=== PATIENT | female | born 1955 | race Caucasian/White ===

== ENCOUNTER → 2018-11-06 | Outpatient (CLI) | payer BC ==
[~2018-11-06] MED LIST: CALCIUM; ESTR42.5 VG; MULT-1335 PO
--- NOTE | 2018-11-06 13:30 | RADIOLOGY IMAGING REPORT ---
FACILITY: [facility] [place] PATIENT NAME: Yinka Dos Santos : 1955 MR: [id number] V: [id number] EXAM DATE: ORDERING PHYSICIAN: LORI PHELAN TECHNOLOGIST: Location: [facility] [place] Patient: Yinka Dos Santos : 1955 Visit/Account:[id number] Date of Sevice: 11/06/2018 CT WRIST/HAND W/O RT Indication: ORIF right wrist Comparison: None available Technique: Axial CT images were obtained through the right wrist. Reformatted coronal and sagittal im ages were reviewed. One of the following dose optimization techniques was utilized in the performance of this exam: autom ated exposure control; adjustment of the mA and/or kV according to the patient's size; or use of an i terative reconstruction technique. Specific details can be referenced in the facility's radiology CT exam operational policy. Findings: There is a plate and screw constructs along the volar margin of the minimally impacted complex intra- articular fracture of the distal radius. Multiple interlocking fixation screws seen with no evidence of hardware complication on these images. There is mild cortical offset at the articular surface of t he distal radius by 1.5 mm noted on image 28 of the coronal series. There is also mild dorsal displac ement of the distal radius in relation to the volar aspect of the distal radius. Cystic changes seen within the radial aspect of the lunate bone likely degenerative in nature. There is suggestion of slight widening of the scapholunate interval which could relate to sequela of old in jury to the scapholunate ligament. Small bone fragments along the ulnar margin of the minimally impacted fracture distal radius seen bes t on image 36 of the coronal reformatted images as well. There is overall evidence of approximately 3 .2 mm of cortical offset at the articular surface with the ulna at the distal radioulnar joint. The visualized flexor and extensor tendons of the wrist show overall no significant tenosynovitis on these images. 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 IMPRESSION: 1. ORIF of the impacted intra-articular fracture distal radius with mild offset at the articular surf aces as described above and overall no obvious hardware complication. Report Dictated By: Chapincito Beach MD at 11/06/2018 1:21 PM Report E-Signed By: Chapincito Beach MD at 11/06/2018 1:25 PM WSN:[id number]
== END ==
LOC: CT 11:18
PROVIDERS: ATTEND Orthopaedic Surgery Hand Surgery
DX: S62.91XA Unspecified fracture of right hand, initial encounter for closed fracture (principal)

== ENCOUNTER 2018-11-10 04:23 | Day surgery (SDC) | payer BC ==
[~2018-11-10] VITALS: Ht 165.1 cm; Wt 70.3 kg
[2018-11-10] MEDS ORDERED: LIDOCAINE/SOD BICARB 8.4% SYR ID ONE (06:50)
[2018-11-10] MEDS ORDERED: NORMOSOL R SOLN(*) 1000 ML BAG 1,000 ML IV PRN (06:50)
[2018-11-10] MEDS ORDERED: CELECOXIB 200 MG CAP PO ONE (06:50)
[2018-11-10] MEDS ORDERED: FAMOTIDINE 20 MG TAB PO ONE (06:50)
[2018-11-10] MEDS ORDERED: MIDAZOLAM 2 MG/2 ML VIAL IVP PRN (06:50)
[2018-11-10] MEDS ORDERED: ceFAZolin(*) 1 GM VIAL 1 GM in NS(*) 0.9% 100 ML MINI-BAG 100 ML IVPB ONE (06:50)
[2018-11-10] MEDS ORDERED: BACITRACIN OINT 15 GM TUBE TP ONE (07:08)
[2018-11-10] MEDS ORDERED: ROPIVACAINE 0.2% 20 ML VIAL ONE (07:08)
[2018-11-10] MEDS ORDERED: METOCLOPRAMIDE 10 MG/2 ML SDV ONE (07:10)
[2018-11-10] MEDS ORDERED: ONDANSETRON 4 MG/2 ML VIAL ONE (07:10)
[2018-11-10] MEDS ORDERED: PROPOFOL EMUL(*) 10MG/ML 20 ML 20 ML ONE (07:10)
[2018-11-10] MEDS ORDERED: LIDOCAINE MPF 1% 5 ML VIAL ONE (07:10)
[2018-11-10] MEDS ORDERED: DEXAMETHASONE SOD 4 MG/ML VIAL ONE (07:10)
[2018-11-10] MEDS ORDERED: fentaNYL CITR 250 MCG/5 ML AMP ONE (07:11)
[2018-11-10 07:16] VITALS: BP 112/68
[2018-11-10] MEDS ORDERED: fentaNYL CITR 100 MCG/2 ML AMP ONE ×2 (07:39→08:54)
[2018-11-10] MEDS ORDERED: ROPIVACAINE 0.5% 20 ML VIAL ONE (08:20)
[2018-11-10] MEDS ORDERED: ePHEDrine 25 MG/5 ML DISP.SYR IVP ONE (08:29)
[2018-11-10] MEDS ORDERED: OXYC-823 PO (10:20)
[2018-11-10] MEDS ORDERED: CEPH500T7 PO (10:21)
[2018-11-10] MEDS ORDERED: OXYC5TAB38 PO (10:37)
[2018-11-10 11:22] VITALS: BP 110/67
--- NOTE | 2018-11-10 11:23 | NUR ---
PT. PLACED ON RA AND INSTRUCTED TO BREATH NORMAL WILL MONITOR OXYGEN SATS ON RA.
[2018-11-10 11:45] VITALS: BP 107/53
[2018-11-10 11:47] VITALS: BP 101/59
--- NOTE | 2018-11-11 01:00 | OPERATIVE REPORT 1 ---
EVENT DATE: November 10, 2018 SURGEON: Dmitry Cardoza MD ANESTHESIOLOGIST: Dale Vazquez MD ANESTHESIA: Block plus general anesthetic. DROP HAMMER SETTER UP: KALYN Choi PREOPERATIVE DIAGNOSIS Malreduced distal radius fracture, right side, status post open reduction and internal fixation. POSTOPERATIVE DIAGNOSIS Malreduced distal radius fracture, right side, status post open reduction and internal fixation. PROCEDURE PERFORMED 1. Right distal radius deep hardware removal (15002). 2. Revision, open reduction and internal fixation of comminuted intra-articular multipart distal radius fracture (69283). This is a revision procedure, so we are going to use a modifier 22 (revision case). 3. Intraoperative fluoroscopy for hardware placement, three views (89911). ESTIMATED BLOOD LOSS Minimal. INTRAVENOUS FLUIDS 1500 of crystalloid. No colloid. TOURNIQUET TIME 97 up, 5 down, 3 up. SPECIMENS None. COMPLICATIONS None. IMPLANTS USED Skeletal [employer] Melissa four-hole standard right-side plate with hook plate and screw and multiple locking and nonlocking smooth and threaded pegs. INDICATIONS FOR PROCEDURE Ms. Dos Santos is a 63-year-old woman who was visiting [place] and fell, resulting in an intra-articular distal radius fracture, right side. She was given a temporary reduction at the local emergency room and then sent to a local orthopedic hospital, where an open reduction and internal fixation using a Synthes volar plate was undertaken. In reviewing the operative note, it does appear that they did everything that one would normally do with these types of fractures, including going far radial and releasing structures as necessary. However, unfortunately, it does not appear that the articular surface was actually reduced. The volar surface looked fairly good, but the dorsal surface was still fairly broadly displaced, and a CT scan confirmed that the scaphoid fossa as well as portions of the lunate fossa and the dorsoulnar fragment were substantially displaced, with gaps in the joint of greater than 5 mm and greater than 30 degrees of rotation. We talked with Ms. Dos Santos about the risks of going back in on a surgery of this kind versus letting it heal where it is and potentially accepting the articular malunion, but ultimately she decided she wanted to have this repaired. DESCRIPTION OF PROCEDURE The patient was brought in to the operating room and placed on the OR table in the supine position. After obtaining adequate general anesthesia and having given a block, the right upper extremity was prepped and draped in the usual sterile fashion. The wound was in excellent condition. It had been closed very nicely. This wound was reopened, but I did extend it distally in Alexx fashion across the wrist flexion crease into the thenar eminence to allow for exposure of the articular surface itself. After dissecting through the tissues and removing the previously placed sutures, the palmar cutaneous branch was identified and protected, as was the median nerve. The flexor carpi radialis was retracted radially. The flexor pollicis longus was retracted ulnarly, and the median nerve was left ulnar as well. The deep closure was opened at the pronator quadratus to expose the plate, which in turn was removed in its entirety. Examining the fracture at this point, we identified the issues that we had seen on the plain x-rays as well. The radial styloid fragment was still displaced relatively radially, and the shaft was relatively ulnar, such that the spike of bone projecting off of the ulnar side was engaging into the ulnar head by the sigmoid notch. We began to work on removing the fragments as necessary. The volar plate fragment was marked on its radial side and set aside on a back table clean. We then displaced the radial styloid fracture in a radial direction, and the volar-ulnar fragment in an ulnar direction, leaving it hinging on soft tissues, and then developed the periosteal hinge around the radius. Grasping it with a fibular clamp, we rotated it in a pronator direction to expose the underlying fragments. This allowed us to clean the callus from under the dorsal fragment, which would allow it to be reduced, and also from behind the articular fragments. Once this was complete, the articular fragments were more mobilized. We tried a couple different ways to mobilize the pieces and assemble them. It was a bit of a challenge, but we were ultimately able to find out the rotation requirements that allowed for them to be pieced together in an anatomic fashion. We held them with 0.035-inch K-wires as necessary and assembled from dorsal to volar, with the final piece being the volar-ulnar corner fragment that was dropped down. Before fully assembling and closing the volar cortical doors that we had established on the way in, we then used InteGro with calcium granules to back up the compressed bone within the metaphysis so that it would give it better support and also bring in better bone healing. With this done, we then reassembled the volar cortical elements in anatomic position, keying them in. We did use one K-wire on the radial side that held that proximal portion of the styloid fragment up on the shaft, and we would leave that one in place. We then placed the Melissa plate using the sliding hole to adjust our position on the lateral until we felt like the pins were adequately supporting the subchondral bone and capturing the fragments without injuring the joint. We locked this down and then started to insert the pins as necessary. Most of these were smooth due to the dorsal comminution, but I was pleased that we could compress the dorsal fragment nicely now that the interstices had been cleaned. Finally, we placed the volar-ulnar corner hook plate, allowing for capture of this fragment, and secured it with a machine thread. The wound was irrigated. We deflated the tourniquet to ensure that there were no deep bleeders. These were coagulated where necessary with bipolar cautery before reinflating the tourniquet during the closure of the deep capsule as well as the pronator quadratus. We then deflated the tourniquet again before finishing closure on the skin with irrigation between each layer. She was given a dry sterile dressing, a Heaven ball on the one remaining pin, with all other pins pulled out, and then she was awakened and transferred to the recovery area in stable condition. BAKARI
== END 2018-11-10 11:00 | disposition home or self-care (01) ==
LOC: OR 04:23
PROVIDERS: ATTEND Orthopaedic Surgery Hand Surgery
DX: S52.571A Other intraarticular fracture of lower end of right radius, initial encounter for closed fracture (principal)
CPT/HCPCS: 25609; 76000; 76942; 87070; 87073; 87205; A4565; C1713; J0690; J1100; J2001; J2250; J2405; J2704; J2765; J2795; J3010; 90471; 96361; 96374; 96376; 99284